=== PATIENT | male | born 1945 | race Caucasian/White ===

== ENCOUNTER 2020-01-03 17:00 | Outpatient (RCR) | payer MEDICARE, OTHER, SELFPAY ==
[2019-10-08 14:09] VITALS: BP 136/60; PULSE 64; RESP 16; TEMP 36.6
[2019-10-08 14:19] VITALS: PULSE 64
[2019-10-13 17:44] LABS: Glucose Point of Care 92 (65-105)
[2019-10-13 17:44] LABS: Glucose Point of Care 104 (65-105)
[2019-11-04 18:03] LABS: Glucose Point of Care 138 (65-105)
[2019-11-04 18:03] LABS: Glucose Point of Care 164 (65-105)
[2019-11-11 16:45] LABS: Glucose Point of Care 163 (65-105)
[2019-11-11 17:46] LABS: Glucose Point of Care 131 (65-105)
--- NOTE | 2019-11-23 13:47 | PCCPR ---
Covid exposure Conrad left message he may have been exposed to a friend who is ill with fever and other symptoms. The person has not yet been tested to covid. He also wore a mask during visit. Explained unless he is symptomatic and he wears a mask the entire session he may attend.
== END 2020-01-03 18:32 | disposition home or self-care (01) ==
LOC: ANHCPREHAB 17:00
PROVIDERS: PCP Family Medicine Adolescent Medicine
DX: Z95.1 Presence of aortocoronary bypass graft (principal)
CPT/HCPCS: 93798

== ENCOUNTER 2020-02-12 08:29 | Outpatient (NON) | payer MEDICARE, OTHER, SELFPAY ==
[2020-02-12 23:31] LABS: SARS-CoV-2 RNA PCR Positive
== END 2020-02-12 08:30 ==
LOC: ANHCOVIDDT 08:30
PROVIDERS: PCP Family Medicine Adolescent Medicine; Visit Provider Family Medicine Adolescent Medicine
DX: U07.1 COVID-19 (principal)
CPT/HCPCS: 87635; C9803; U0003

== ENCOUNTER 2024-08-19 18:36 | Emergency (ER) | payer MEDICARE, OTHER, SELFPAY ==
--- NOTE | 2024-08-19 18:44 | ED.FALL ---
HPI - Fall General Chief Complaint: Fall Stated Complaint: Laceration On Both Arms Time Seen by Provider: 08/19/24 18:45 Source: patient, RN notes reviewed and old records reviewed Mode of arrival: ambulatory Limitations: no limitations History of Present Illness HPI Narrative: 79-year-old male presents to the [facility] with an abrasion to the right forearm and a flap/laceration to the left forearm. Patient with full range of motion of the shoulders, elbows and wrists. Patient not sure of last Tdap, declined at this time. Bleeding is controlled Occurred approximately 6:00 p.m. Patient states that he was standing on a step stool trying to hang something when he slipped, arms rubbed against the lawnmower. Denies hitting head. No loss of consciousness. Patient on blood thinners. Denies neck and back pain. Related Data Home Medications ?Medication ?Instructions ?Recorded ?Confirmed ?Last Taken ?Type ascorbic acid (vitamin C) 500 mg 500 mg PO DAILY 10/08/19 02/02/24 10/08/19 History tablet (Vitamin C) calcium cmb tablet PO 10/08/19 02/02/24 10/08/19 History no.2-[id number] 120 mg-1,000 unit-10 mg tablet (Vitamin D-3 with Aloe) duloxetine 60 mg capsule,delayed 60 mg PO DAILY 10/08/19 02/02/24 10/08/19 History release ezetimibe 10 mg tablet (Zetia) 10 mg PO DAILY 10/08/19 02/02/24 10/08/19 History 10 fenofibrate 160 mg tablet 160 mg PO DAILY 10/08/19 02/02/24 10/08/19 History lisinopril 20 mg tablet (Zestril) 20 mg PO DAILY 10/08/19 02/02/24 10/08/19 History metoprolol tartrate 50 mg tablet 50 mg PO Q12H 10/08/19 02/02/24 10/08/19 History (Lopressor) omega 3-rcr-qcy-fish oil 1,000 mg 1 cap PO DAILY 10/08/19 02/02/24 10/08/19 History (120 mg-180 mg) capsule (Fish Oil) 1000 vitamin B complex (B-Complex 1 tablet 10/08/19 02/02/24 10/08/19 History tablet) aspirin 325 mg tablet 325 mg PO DAILY 08/15/23 02/02/24 Unknown History doxazosin 2 mg tablet 2 mg PO DAILY 02/02/24 02/02/24 Unknown History Allergies Allergy/AdvReac Type Severity Reaction Status Date / Time No Known Allergies Allergy Verified 08/19/24 18:53 Review of Systems Review of Systems: All systems reviewed & are unremarkable except as noted in HPI and below Constitutional: Constitutional: Reports no additional constitutional complaints ENT: Reports system reviewed and no additional complaints, except as documented Cardiovascular: Cardiovascular: Reports no additional cardiovascular complaints, Denies chest pain and Denies dyspnea Respiratory: Respiratory: Reports no additional respiratory complaints, Denies chest congestion, Denies cough and Denies dyspnea Musculoskeletal: Musculoskeletal: Reports no additional musculoskeletal complaints Integumentary/Breasts: Skin/Breast: Reports as per HPI and Reports wounds [facility] Past Medical History Medical History Pneumonia History of prostate cancer (1996) Surgical History Surgical History History of hemorrhoidectomy (2009) 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) Family History Family History Mother Acute myocardial infarction Hypertension Father Hypertension Diabetes mellitus Sibling Rheumatic heart disease Social History Social History Smoking packs per day: 1 Smoking cigarettes per day: 20.0 Years smoked: 40 Smoking pack-years: 40.00 Smoking status: Former smoker Tobacco type: cigarettes Second hand tobacco smoke exposure: No Smoking end date: 03/10/99 Lack of Transportation: No Lack of Food: Never True Current Housing: I Have Housing Concerned About Future Housing: No Difficulty Paying Gas/Electric Bills: No Difficulty Paying for Meds: No Currently Unemployed: No Education: High School Diploma/GED Difficulty w/ Childcare or Family Care: No Comments At the time of my signature, I reviewed and agree with the nursing past medical, surgical, social, and family history. There is no relevant family history pertinent to the patient complaint. Exam Const: General: cooperative, comfortable, no acute distress, well developed, alert, well groomed, well nourished and other (Hard of hearing) Nutritional Appearance: well nourished Orientation/consciousness: patient oriented x3 Limitations: no limitations HENMT: Head: normal to inspection Eyes: General: appearance normal, both eyes and all related structures Alignment and Position: alignment normal Neck: Neck: normal visual inspection, full ROM, no lymphadenopathy and no meningeal signs Chest: Chest palpation & inspection: normal inspection of the chest Resp: Effort & Inspection: normal respiratory effort and able to speak in complete sentences Cardio: Rate: regular rate Skin: General skin exam: normal color and no rashes or lesions noted Other: Right forearm abrasion 5 cm Left forearm, flap/laceration 1 and half by 2 cm Neuro: General: patient oriented x3, gait normal, moves all extremities and no meningeal signs Cognition (Neuro): normal cognition Speech: normal speech Gait exam (Neuro): Normal gait present Extrem: General: normal to inspection, full ROM, capillary refill normal and normal gait Right upper extremity: shoulder/upper arm normal to inspection, elbow/forearm normal to inspection and wrist normal to inspection Left upper extremity: shoulder/upper arm inspection abnormal, elbow/forearm normal to inspection and wrist normal to inspection Psych: Appearance: grossly normal and well kempt Mental Status: mental status grossly normal Speech and movement: Normal speech and movement present and Clear speech present Affect: normal affect Attitude: cooperative Course Course Level of Care: Express Care Visit Vital Signs Vital signs: Vital Signs Temperature 98.0 F 08/19/24 18:50 Pulse Rate 56 L 08/19/24 18:50 Respiratory Rate 16 08/19/24 18:50 Blood Pressure 124/54 L 08/19/24 18:50 Pulse Oximetry 96 08/19/24 18:50 Oxygen Delivery Room Air 08/19/24 18:50 Temperature 98.0 F 08/19/24 18:50 Pulse Rate 56 L 08/19/24 18:50 Respiratory Rate 16 08/19/24 18:50 Blood Pressure 124/54 L 08/19/24 18:50 Pulse Oximetry 96 08/19/24 18:50 Oxygen Delivery Room Air 08/19/24 18:50 Reviewed Procedures Laceration Laceration 1: Date: 08/19/24 Time: 19:05 Site: upper extremity Side (If applicable): left Size (cm): 2 Description: flap Depth: simple, single layer Local Anesthetic: lidocaine 1% Amount of anesthesia used (mL): 6 Pre-repair: wound explored and irrigated (450) ====== Skin Level ====== Skin layer closed with: nylon Size (cm): 4-0 Number of sutures: 5 Technique: simple, interrupted ====== Subcutaneous Layer ====== ====== Muscle Layer ====== ====== Tendon Layer ====== MDM - Fall MDM Narrative Medical decision making narrative: Patient sitting in exam room. Patient is nontoxic, vitals are stable. Patient presents with an abrasion to the lip right forearm, cleaned with wound cleanser applied Neosporin and dressed appropriately/. Patient with a flap/ laceration to left forearm. Five sutures placed after 400 mils of irrigation done. Patient declined Tdap Patient appropriate for outpatient treatment with close follow-up Discharge instructions reviewed with patient, as well as provided in writing per nursing staff. The instructions also include specific and strict return/GO TO THE ER as well as f/u information. All questions have been answered, and the patient deny any further questions with discharge and discharge plan. Some parts of this dictation were generated by voice recognition software and may contain typographical and/or grammatical inaccuracies. Differential Diagnosis Differential diagnosis: Likely syncope and other (Laceration, abrasion, avulsion) Critical Care Time Critical Care Time Critical Care Time: No Discharge Plan Discharge Clinical Impression: Abrasion of forearm, right Qualifiers: Encounter type: initial encounter Qualified Code(s): S50.811A - Abrasion of right forearm, initial encounter Laceration of forearm, left Qualifiers: Encounter type: initial encounter Qualified Code(s): S51.812A - Laceration without foreign body of left forearm, initial encounter Patient Disposition: Home Condition: Stable Instructions: Care For Your Stitches (ED), Laceration (DC), Abrasion (ED) Additional Instructions: Keep area clean and dry. Wash twice a day with warm soapy water, pat dry. On the abrasion, wound without stitches, apply bacitracin twice daily. Be sure to wash off all of the bacitracin when you wash it and before you reapply. Follow-up with primary care provider in 10 days to have your stitches removed For new or worsening symptoms go directly to the emergency room Patient Language: Sinhala Prescriptions: No Action aspirin 325 mg tablet 325 mg PO DAILY doxazosin 2 mg tablet 2 mg PO DAILY lisinopril [Zestril] 20 mg Tablet 20 mg PO DAILY metoprolol tartrate [Lopressor] 50 mg Tablet 50 mg PO Q12H ezetimibe [Zetia] 10 mg Tablet 10 mg PO DAILY duloxetine 60 mg Capsule,Delayed Release(Dr/Ec) 60 mg PO DAILY fenofibrate 160 mg Tablet 160 mg PO DAILY ascorbic acid (vitamin C) [Vitamin C] 500 mg Tablet 500 mg PO DAILY vitamin B complex [B-Complex] Tablet 1 tablet Vitamin D-3 with Aloe 120-1,000-10 mg-unit-mg Tablet PO omega 4-heu-mwy-fish oil [Fish Oil] 1,000 mg (120 mg-180 mg) Capsule 1 cap PO DAILY tamsulosin [Flomax] 0.4 mg capsule 0.4 mg PO HS Qty: 90 3RF Jardiance 10 mg tablet 10 mg PO DAILY Qty: 90 3RF glimepiride 2 mg tablet 2 mg PO QAM Qty: 90 3RF Rx Instructions: administer with breakfast escitalopram oxalate 10 mg tablet 10 mg PO DAILY Qty: 90 2RF omeprazole 40 mg capsule,delayed release(DR/EC) 40 mg PO DAILY Qty: 90 3RF Follow-up/Referrals: Mani Holm MD [Primary Care Provider] - 2 Weeks ([facility] follow-up, suture removal) Time of Disposition: 19:17
[2024-08-19 18:50] VITALS: BP 124/54; PULSE 56; RESP 16; TEMP 36.7; O2SAT 96
[2024-08-19] MEDS: LIDOCAINE 1% LOCAL INJ 2 ML AMPUL 6 ML INFILTRATE (19:04)
== END 2024-08-19 19:25 | disposition home or self-care (01) ==
PROVIDERS: Emergency Provider Nurse Practitioner; PCP Family Medicine Adolescent Medicine
DX: S51.812A Laceration without foreign body of left forearm, initial encounter (principal); W17.89XA Other fall from one level to another, initial encounter; S50.811A Abrasion of right forearm, initial encounter; Z87.891 Personal history of nicotine dependence; Z85.46 Personal history of malignant neoplasm of prostate; Z95.1 Presence of aortocoronary bypass graft
CPT/HCPCS: 12001; 99212; G0463; J2003